=== PATIENT | male | born 1975 | race Two or more races ===

== ENCOUNTER 2025-05-11 10:02 | Inpatient (IN) | payer MEDICAID ==
[~2025-05-11] VITALS: Ht 170.2 cm; Wt 74.4 kg
[2025-05-11] MEDS: IV NS 0.9% 1,000 ML BAG IV ONE (10:40)
[2025-05-11 11:26] LABS: PLATELET COUNT (AUTO) 234 K/uL (150-450); RED BLOOD CELL COUNT(AUTO) 2.90 MIL/uL (4.5-6.0); RED CELL DISTRIBUTION WIDTH 15.1 % (11.5-15.0); WHITE BLOOD COUNT (AUTO) 5.8 K/uL (4.3-11.0)
[2025-05-11 11:29] LABS: CALCIUM, SERUM 8.1 mg/dL (8.5-10.1); CREATININE 0.5 mg/dL (0.6-1.3); SODIUM SERUM 132 mmol/L (136-145); UREA NITROGEN, BLOOD 17 mg/dL (7-18)
[2025-05-11 11:44] LABS: NT-PRO BNP 116 pg/mL (0-125)
[2025-05-11 12:34] LABS: EOSINOPHILS % (MANUAL) 2 % (0-4); LYMPHOCYTES % (MANUAL) 12 % (16-48); MONOCYTES % (MANUAL) 32 % (0-11.0); NEUTROPHILS % (MANUAL) 54 (42-76); PLATELET ESTIMATE ADEQUATE
[2025-05-11] MEDS ORDERED: IV NS 0.9% 250 ML IV ONE (12:46)
[2025-05-11] MEDS ORDERED: IOHEXOL-350 100 ML VIAL IV ONE (12:46)
[2025-05-11] MEDS ORDERED: ENOXAPARIN SODIUM 80 MG/0.8 ML DISP.SYRIN SQ ONE (14:56)
[2025-05-11] MEDS: ENOXAPARIN SODIUM 80 MG/0.8 ML DISP.SYRIN SQ ONE (15:00)
[2025-05-11] MEDS ORDERED: Z GUARD REMEDY 4 OZ OINT TP PRN (15:00)
[2025-05-11] MEDS ORDERED: MAGNESIUM HYDROXIDE 30 ML UDC PO PRN (15:00)
[2025-05-11] MEDS ORDERED: ALLO300T2 GT (15:05)
[2025-05-11] MEDS ORDERED: LACO10SO GT (15:05)
[2025-05-11] MEDS ORDERED: PHEN125O9 GT (15:05)
[2025-05-11] MEDS ORDERED: BUPR1FIL5 SL ×2 (15:05)
[2025-05-11] MEDS ORDERED: ONDA4TAB11 GT (15:05)
[2025-05-11] MEDS ORDERED: LEVE500S9 GT (15:05)
[2025-05-11] MEDS ORDERED: ACET-73 GT (15:05)
[2025-05-11] MEDS ORDERED: SILV50CR32 TP (15:05)
[2025-05-11] MEDS ORDERED: BUPR2TAB3 SL (15:05)
[2025-05-11] MEDS ORDERED: SODI100037 GT (15:05)
[2025-05-11] MEDS ORDERED: BISA10SU11 RC (15:05)
[2025-05-11] MEDS ORDERED: LANS30CA56 GT (15:05)
[2025-05-11] MEDS ORDERED: VALP250S22 GT (15:05)
[2025-05-11] MEDS ORDERED: EPIN0.3A4 IM (15:05)
[2025-05-11] MEDS ORDERED: OLAN5TAB3 GT (15:05)
[2025-05-11] MEDS ORDERED: KETO15CR2 TP (15:05)
[2025-05-11] MEDS ORDERED: CHOL100043 GT (15:05)
[2025-05-11] MEDS ORDERED: TPN/PPN PER PHARMACY IV PRN (19:00)
[2025-05-11 19:09] LABS: PLATELET COUNT (AUTO) 225 K/uL (150-450); RED BLOOD CELL COUNT(AUTO) 3.24 MIL/uL (4.5-6.0); RED CELL DISTRIBUTION WIDTH 15.7 % (11.5-15.0); WHITE BLOOD COUNT (AUTO) 5.8 K/uL (4.3-11.0)
[2025-05-11] MEDS ORDERED: DEXTROSE 50%-WATER 50 ML DISP.SYRIN IV PRN (19:30)
[2025-05-11 19:55] LABS: LYMPHOCYTES % (MANUAL) 13 % (16-48); MONOCYTES % (MANUAL) 23 % (0-11.0)
[2025-05-11 20:00] VITALS: BP 134/80; TEMP 97.9; O2SAT 98
[2025-05-11 20:01] LABS: EOSINOPHILS % (MANUAL) 6 % (0-4); NEUTROPHILS % (MANUAL) 58 (42-76)
[2025-05-11 20:02] LABS: PLATELET ESTIMATE ADEQUATE
[2025-05-11] MEDS: TPN BAG #1 IV SCH (20:16)
[2025-05-11] MEDS: OLANZAPINE 5 MG TABLET GT SCH (21:17)
[2025-05-11] MEDS: BUPRENORPHINE HCL 2 MG TAB.SUBL SL PRN (22:28)
[2025-05-12] MEDS: BLOOD SUGAR DIAGNOSTIC 1 EACH STRIP IN SCH (00:11)
[2025-05-12] MEDS: ENOXAPARIN SODIUM 80 MG/0.8 ML DISP.SYRIN SQ SCH (04:56)
[2025-05-12 05:12] VITALS: BP 140/80; TEMP 98.3; O2SAT 100
[2025-05-12 05:13] VITALS: BP 137/84; TEMP 98.1; O2SAT 99
[2025-05-12 07:40] LABS: CALCIUM, SERUM 8.6 mg/dL (8.5-10.1); CREATININE 0.4 mg/dL (0.6-1.3); SODIUM SERUM 133.0 mmol/L (136-145); UREA NITROGEN, BLOOD 10.0 mg/dL (7-18)
[2025-05-12 07:41] LABS: PHOSPHORUS 3.9 mg/dL (2.5-4.9)
[2025-05-12 08:00] LABS: PLATELET COUNT (AUTO) 262 K/uL (150-450); RED BLOOD CELL COUNT(AUTO) 3.00 MIL/uL (4.5-6.0); RED CELL DISTRIBUTION WIDTH 15.7 % (11.5-15.0); WHITE BLOOD COUNT (AUTO) 5.0 K/uL (4.3-11.0)
[2025-05-12 08:20] LABS: INR 1.13 (0.91-1.10)
[2025-05-12 08:38] LABS: PLATELET COUNT (AUTO) 267 K/uL (150-450); RED BLOOD CELL COUNT(AUTO) 3.11 MIL/uL (4.5-6.0); RED CELL DISTRIBUTION WIDTH 14.8 % (11.5-15.0); WHITE BLOOD COUNT (AUTO) 5.0 K/uL (4.3-11.0)
[2025-05-12] MEDS: PANTOPRAZOLE 40 MG TABLET.DR PO SCH (08:43)
[2025-05-12] MEDS: VALPROIC ACID 250 MG/5 ML UDC GT SCH (08:45)
[2025-05-12] MEDS: LEVETIRACETAM SOL (5 ML) 100 MG/ML UDC GT SCH (08:46)
[2025-05-12] MEDS: LACOSAMIDE ORAL SOLN 50 MG/5 ML UDC GT SCH (08:47)
[2025-05-12] MEDS: PHENYTOIN SUSP UDC 100 MG/4 ML UDC GT SCH (08:48)
[2025-05-12] MEDS: PANTOPRAZOLE 40 MG/PACK PACK GT SCH (08:48)
[2025-05-12] MEDS: SODIUM CHLORIDE 1000 MG TABLET GT SCH (08:49)
[2025-05-12] MEDS: CHOLECALCIFEROL 1,000 UNIT TABLET (VIT D3) GT SCH (08:49)
[2025-05-12] MEDS: ALLOPURINOL 100 MG TABLET GT SCH (08:50)
[2025-05-12] MEDS: SILVER SULFADIAZINE 50 GM JAR TP SCH (09:57)
[2025-05-12] MEDS ORDERED: ANESTHESIA TRAY IN PYXIS 1 EA TRAY MC ONE (12:37)
[2025-05-12] MEDS: Magnesium 1GM/D5W 100ML PREMIX 100 ML IV SCH ×2 (12:42→14:41)
[2025-05-12] MEDS: ACETAMINOPHEN 325 MG TABLET PO PRN (12:43)
[2025-05-12] MEDS: PANTOPRAZOLE 40 MG VIAL IV SCH (12:47)
[2025-05-12 13:53] LABS: EOSINOPHILS % (MANUAL) 2 % (0-4); LYMPHOCYTES % (MANUAL) 7 % (16-48); MONOCYTES % (MANUAL) 50 % (0-11.0); MYELOCYTES % 2 % (0-0); NEUTROPHILS % (MANUAL) 39 (42-76)
[2025-05-12 13:54] LABS: PLATELET ESTIMATE ADEQUATE
[2025-05-12 13:56] LABS: PLATELET ESTIMATE ADEQUATE
[2025-05-12] MEDS: POTASSIUM CL. PREMIX PERIPHER. 50 ML IV SCH (13:58)
[2025-05-12 16:09] LABS: LDL 103.0 mg/dL (0-99)
[2025-05-12] MEDS: FAT EMULSION 20% 500 ML in PREMIX 1 EA IV SCH (17:08)
[2025-05-12 19:11] LABS: PLATELET COUNT (AUTO) 303 K/uL (150-450); RED BLOOD CELL COUNT(AUTO) 3.13 MIL/uL (4.5-6.0); RED CELL DISTRIBUTION WIDTH 15.5 % (11.5-15.0); WHITE BLOOD COUNT (AUTO) 5.0 K/uL (4.3-11.0)
[2025-05-12 20:00] VITALS: BP 129/87; TEMP 97.9; O2SAT 98
[2025-05-12 20:08] LABS: IRON, SERUM 68.0 ug/dl (50-175)
[2025-05-12 20:09] LABS: BAND % (MANUAL) 1 % (0.0-5.0); EOSINOPHILS % (MANUAL) 2 % (0-4); LYMPHOCYTES % (MANUAL) 17 % (16-48); METAMYELOCYTES % 1 % (0-0); MONOCYTES % (MANUAL) 33 % (0-11.0); NEUTROPHILS % (MANUAL) 46 (42-76); PLATELET ESTIMATE ADEQUATE
[2025-05-12] MEDS: HEPARIN SODIUM, PORCINE 5000 UNITS/1 ML VIAL IV ONE (22:50)
[2025-05-12] MEDS: TPN #2 IV SCH (23:03)
[2025-05-13] VITALS (7 sets, daily range): BP systolic 128–150; BP diastolic 86–99; TEMP 97.9–98.6; O2SAT 96–99
[2025-05-13] MEDS ORDERED: HEPARIN INFUSION/D5W 500 ML IV ONE (00:04)
[2025-05-13] MEDS: HEPARIN INFUSION/D5W 500 ML IV PRN (00:08)
[2025-05-13 08:38] LABS: CALCIUM, SERUM 8.8 mg/dL (8.5-10.1); CREATININE 0.4 mg/dL (0.6-1.3); PHOSPHORUS 4.1 mg/dL (2.5-4.9); SODIUM SERUM 135.0 mmol/L (136-145); UREA NITROGEN, BLOOD 8.0 mg/dL (7-18)
[2025-05-13 09:59] LABS: PLATELET COUNT (AUTO) 342 K/uL (150-450); RED BLOOD CELL COUNT(AUTO) 3.17 MIL/uL (4.5-6.0); RED CELL DISTRIBUTION WIDTH 16.2 % (11.5-15.0); WHITE BLOOD COUNT (AUTO) 5.2 K/uL (4.3-11.0)
[2025-05-13] MEDS ORDERED: GADOTERATE MEGLUMINE 10 MMOL/20 ML VIAL IV ONE (11:26)
[2025-05-13 13:05] LABS: EOSINOPHILS % (MANUAL) 3 % (0-4); LYMPHOCYTES % (MANUAL) 6 % (16-48); MONOCYTES % (MANUAL) 22 % (0-11.0); MYELOCYTES % 1 % (0-0); NEUTROPHILS % (MANUAL) 68 (42-76)
[2025-05-13 13:07] LABS: PLATELET ESTIMATE ADEQUATE
[2025-05-13] MEDS ORDERED: PHARMACY TO CHANGE GT/NG MEDS TO PO XX PRN (13:30)
[2025-05-13] MEDS: VALPROIC ACID 250 MG/5 ML UDC PO SCH (17:00)
[2025-05-13] MEDS: LEVETIRACETAM SOL (5 ML) 100 MG/ML UDC PO SCH (17:01)
[2025-05-13] MEDS: PHENYTOIN SUSP UDC 100 MG/4 ML UDC PO SCH (17:01)
[2025-05-13] MEDS: SODIUM CHLORIDE 1000 MG TABLET PO SCH (17:02)
[2025-05-13] MEDS: LACOSAMIDE ORAL SOLN 50 MG/5 ML UDC PO SCH (17:04)
[2025-05-13 17:50] LABS: INR 1.08 (0.91-1.10)
[2025-05-13 19:15] LABS: PLATELET COUNT (AUTO) 336 K/uL (150-450); RED BLOOD CELL COUNT(AUTO) 3.19 MIL/uL (4.5-6.0); RED CELL DISTRIBUTION WIDTH 15.6 % (11.5-15.0); WHITE BLOOD COUNT (AUTO) 5.3 K/uL (4.3-11.0)
[2025-05-13 19:59] LABS: BAND % (MANUAL) 4 % (0.0-5.0); EOSINOPHILS % (MANUAL) 1 % (0-4); LYMPHOCYTES % (MANUAL) 23 % (16-48); METAMYELOCYTES % 1 % (0-0); MONOCYTES % (MANUAL) 31 % (0-11.0); NEUTROPHILS % (MANUAL) 40 (42-76); PLATELET ESTIMATE ADEQUATE
[2025-05-13] MEDS: OLANZAPINE 5 MG TABLET PO SCH (22:15)
[2025-05-14] VITALS (9 sets, daily range): BP systolic 119–149; BP diastolic 65–92; TEMP 97.3–98.2; O2SAT 98–99
[2025-05-14] MEDS: TPN #3 IV SCH (00:15)
[2025-05-14] MEDS: INSULIN REGULAR, HUMAN 100 UNIT/ML 3 ML VIAL SQ PRN (00:35)
[2025-05-14 08:01] LABS: PLATELET COUNT (AUTO) 362 K/uL (150-450); RED BLOOD CELL COUNT(AUTO) 2.92 MIL/uL (4.5-6.0); RED CELL DISTRIBUTION WIDTH 17.1 % (11.5-15.0); WHITE BLOOD COUNT (AUTO) 5.2 K/uL (4.3-11.0)
[2025-05-14 08:02] LABS: CALCIUM, SERUM 8.2 mg/dL (8.5-10.1); CREATININE 0.5 mg/dL (0.6-1.3); PHOSPHORUS 4.1 mg/dL (2.5-4.9); SODIUM SERUM 130.0 mmol/L (136-145); UREA NITROGEN, BLOOD 9.0 mg/dL (7-18)
[2025-05-14] MEDS: ALLOPURINOL 100 MG TABLET PO SCH (09:03)
[2025-05-14] MEDS: CHOLECALCIFEROL 1,000 UNIT TABLET (VIT D3) PO SCH (09:06)
[2025-05-14] MEDS: PANTOPRAZOLE 40 MG TABLET.DR PO SCH (09:06)
[2025-05-14] MEDS: KETOCONAZOLE 2% CREAM 15 GM TUBE TP SCH (09:10)
[2025-05-14] MEDS: HEPARIN SODIUM, PORCINE 5000 UNITS/1 ML VIAL IV ONE ×2 (11:14→23:43)
[2025-05-14 11:34] LABS: EOSINOPHILS % (MANUAL) 2 % (0-4); LYMPHOCYTES % (MANUAL) 15 % (16-48); MONOCYTES % (MANUAL) 34 % (0-11.0); NEUTROPHILS % (MANUAL) 49 (42-76); PLATELET ESTIMATE ADEQUATE
[2025-05-14] MEDS: Magnesium 1GM/D5W 100ML PREMIX 100 ML IV SCH (13:59)
[2025-05-14] MEDS: POTASSIUM CL. PREMIX PERIPHER. 50 ML IV SCH (13:59)
[2025-05-14] MEDS: MAG HYDROX/AL HYDROX/SIMETH 30 ML UDC PO PRN (14:15)
[2025-05-14] MEDS: SOD FERRIC GLUC 125 MG in IV NS 0.9% 100 ML IV SCH (14:42)
[2025-05-14 18:40] LABS: PLATELET COUNT (AUTO) 368 K/uL (150-450); RED BLOOD CELL COUNT(AUTO) 3.06 MIL/uL (4.5-6.0); RED CELL DISTRIBUTION WIDTH 17.3 % (11.5-15.0); WHITE BLOOD COUNT (AUTO) 4.6 K/uL (4.3-11.0)
[2025-05-14 19:24] LABS: EOSINOPHILS % (MANUAL) 1 % (0-4); LYMPHOCYTES % (MANUAL) 25 % (16-48); MONOCYTES % (MANUAL) 30 % (0-11.0); MYELOCYTES % 1 % (0-0); NEUTROPHILS % (MANUAL) 43 (42-76); PLATELET ESTIMATE ADEQUATE
[2025-05-14] MEDS: TPN #4 IV SCH (20:03)
[2025-05-14 20:23] LABS: OCCULT BLOOD STOOL NEGATIVE (NEGATIVE)
[2025-05-15] VITALS: BP 143/68; TEMP 98; O2SAT 99
[2025-05-15 04:00] VITALS: BP 155/88; TEMP 97.8; O2SAT 97
[2025-05-15 07:32] LABS: CALCIUM, SERUM 8.5 mg/dL (8.5-10.1); CREATININE 0.5 mg/dL (0.6-1.3); PHOSPHORUS 3.5 mg/dL (2.5-4.9); SODIUM SERUM 141.0 mmol/L (136-145); UREA NITROGEN, BLOOD 8.0 mg/dL (7-18)
[2025-05-15 07:41] LABS: FIBRINOGEN ACTIVITY 281.0 Mg/dL (213-485); INR 1.11 (0.91-1.10)
[2025-05-15 08:00] VITALS: BP_SYST 133; BP_SYST 135; BP_DIAS 88; TEMP 97.8; O2SAT 97
[2025-05-15] MEDS ORDERED: IV NS 0.9% 250 ML IV ONE (09:29)
[2025-05-15] MEDS ORDERED: IOHEXOL-300 100 ML VIAL IV ONE (09:29)
[2025-05-15 12:00] VITALS: BP_SYST 135; BP_SYST 137; BP_DIAS 88; TEMP 97.8; O2SAT 97
[2025-05-15] MEDS: LACOSAMIDE ORAL SOLN 50 MG/5 ML UDC PO SCH (12:02)
[2025-05-15] MEDS: TPN #5 IV SCH (14:03)
[2025-05-15 15:53] LABS: PLATELET COUNT (AUTO) 369 K/uL (150-450); RED BLOOD CELL COUNT(AUTO) 3.04 MIL/uL (4.5-6.0); RED CELL DISTRIBUTION WIDTH 18.4 % (11.5-15.0); WHITE BLOOD COUNT (AUTO) 4.8 K/uL (4.3-11.0)
[2025-05-15 16:00] VITALS: BP 138/86; TEMP 98.2; O2SAT 97
[2025-05-15 17:13] LABS: LYMPHOCYTES % (MANUAL) 26 % (16-48); MONOCYTES % (MANUAL) 34 % (0-11.0); NEUTROPHILS % (MANUAL) 40 (42-76); PLATELET ESTIMATE ADEQUATE
[2025-05-15 19:42] LABS: PLATELET COUNT (AUTO) 317 K/uL (150-450); RED BLOOD CELL COUNT(AUTO) 2.53 MIL/uL (4.5-6.0); RED CELL DISTRIBUTION WIDTH 18.9 % (11.5-15.0); WHITE BLOOD COUNT (AUTO) 3.6 K/uL (4.3-11.0)
[2025-05-15 20:00] VITALS: BP 134/84; TEMP 98.6; O2SAT 99
[2025-05-15] MEDS: POTASSIUM CL. PREMIX PERIPHER. 50 ML IV SCH (20:37)
[2025-05-15] MEDS: ENOXAPARIN SODIUM 80 MG/0.8 ML DISP.SYRIN SQ SCH (20:39)
[2025-05-16] VITALS: BP 154/93; TEMP 98.1; O2SAT 99
[2025-05-16 04:00] VITALS: BP 152/80; TEMP 98.6; O2SAT 100
[2025-05-16 07:11] LABS: FREE KAPPA LT CHAINS SERUM 17.8 mg/L (3.3-19.4); FREE LAMBDA LT CHAIN SERUM 18.2 mg/L (5.7-26.3); IMMUNOGLOBULIN A, SERUM 79 mg/dL (90-386); IMMUNOGLOBULIN M, SERUM 9 mg/dL (20-172); KAPPA/LAMBDA RATIO SERUM 0.98 (0.26-1.65)
[2025-05-16 08:00] VITALS: BP 164/91; TEMP 98.4; O2SAT 100
[2025-05-16 08:06] LABS: PLATELET COUNT (AUTO) 413 K/uL (150-450); RED BLOOD CELL COUNT(AUTO) 2.99 MIL/uL (4.5-6.0); RED CELL DISTRIBUTION WIDTH 17.8 % (11.5-15.0); WHITE BLOOD COUNT (AUTO) 4.3 K/uL (4.3-11.0)
[2025-05-16] MEDS: PANTOPRAZOLE 40 MG/PACK PACK GT SCH (08:47)
[2025-05-16 10:33] LABS: CALCIUM, SERUM 8.7 mg/dL (8.5-10.1); CREATININE 0.5 mg/dL (0.6-1.3); PHOSPHORUS 3.8 mg/dL (2.5-4.9); SODIUM SERUM 140.0 mmol/L (136-145); UREA NITROGEN, BLOOD 8.0 mg/dL (7-18)
[2025-05-16 11:12] LABS: FOLIC ACID 12.9 ng/mL (>3.0)
[2025-05-16 12:00] VITALS: BP 132/89; TEMP 97.5; O2SAT 99
[2025-05-16] MEDS: POTASSIUM CL. PREMIX PERIPHER. 50 ML IV SCH (12:17)
[2025-05-16] MEDS ORDERED: ENOX40DI SQ (14:19)
[2025-05-16] MEDS ORDERED: [UNRECOGNIZED DRUG - SUPPLY] MC (14:19)
[2025-05-16] MEDS: Magnesium 1GM/D5W 100ML PREMIX 100 ML IV SCH (14:27)
[2025-05-16] MEDS: ONDANSETRON HCL/PF 4 MG/2 ML VIAL IVP PRN (14:28)
[2025-05-16] MEDS: IV NS 0.9% 250 ML IV ONE (14:57)
[2025-05-16 16:00] VITALS: BP 138/86; TEMP 98.1; O2SAT 99
[2025-05-16] MEDS: IV NS 0.9% 500 ML IV ONE (18:00)
[2025-05-16] MEDS: TPN #6 IV SCH (19:48)
[2025-05-16 20:00] VITALS: BP 134/94; TEMP 98.1; O2SAT 99
[2025-05-16] MEDS: METOCLOPRAMIDE HCL 10 MG/10 ML UDC PO SCH (23:59)
[2025-05-17] VITALS: BP 143/90; TEMP 97.1; O2SAT 99
[2025-05-17 02:04] LABS: PLATELET COUNT (AUTO) 428 K/uL (150-450); RED BLOOD CELL COUNT(AUTO) 3.32 MIL/uL (4.5-6.0); RED CELL DISTRIBUTION WIDTH 20.6 % (11.5-15.0); WHITE BLOOD COUNT (AUTO) 6.9 K/uL (4.3-11.0)
[2025-05-17 02:52] LABS: BAND % (MANUAL) 1 % (0.0-5.0); LYMPHOCYTES % (MANUAL) 17 % (16-48); MONOCYTES % (MANUAL) 38 % (0-11.0); NEUTROPHILS % (MANUAL) 44 (42-76); PLATELET ESTIMATE ADEQUATE
[2025-05-17 04:00] VITALS: BP 154/95; TEMP 97.5; O2SAT 98
[2025-05-17 06:56] LABS: INR 1.09 (0.91-1.10)
[2025-05-17 07:01] LABS: CALCIUM, SERUM 8.8 mg/dL (8.5-10.1); CREATININE 0.5 mg/dL (0.6-1.3); PHOSPHORUS 4.1 mg/dL (2.5-4.9); SODIUM SERUM 134.0 mmol/L (136-145); UREA NITROGEN, BLOOD 13.0 mg/dL (7-18)
[2025-05-17 08:00] VITALS: BP 140/81; TEMP 97.9; O2SAT 98
[2025-05-17] MEDS: POTASSIUM CHLORIDE 20 MEQ POWDER PACKET GT ONE ×2 (08:30→09:48)
[2025-05-17] MEDS: Magnesium 1GM/D5W 100ML PREMIX 100 ML IV SCH ×2 (10:00→10:02)
[2025-05-17 10:32] LABS: PLATELET COUNT (AUTO) 433 K/uL (150-450); RED BLOOD CELL COUNT(AUTO) 3.10 MIL/uL (4.5-6.0); RED CELL DISTRIBUTION WIDTH 18.4 % (11.5-15.0); WHITE BLOOD COUNT (AUTO) 7.3 K/uL (4.3-11.0)
[2025-05-17] MEDS: METOCLOPRAMIDE HCL 10 MG/2 ML VIAL IV SCH (10:35)
[2025-05-17 11:31] LABS: BAND % (MANUAL) 3 % (0.0-5.0); BASOPHILS % (MANUAL) 0 % (0.0-2.0); EOSINOPHILS % (MANUAL) 0 % (0-4); LYMPHOCYTES % (MANUAL) 14 % (16-48); MONOCYTES % (MANUAL) 28 % (0-11.0); NEUTROPHILS % (MANUAL) 55 (42-76); PLATELET ESTIMATE ADEQUATE
[2025-05-17 12:00] VITALS: BP 139/85; TEMP 98.3; O2SAT 99
[2025-05-17 12:10] LABS: *SPE A/G RATIO 0.6 (0.7-1.7); *SPE ALBUMIN 2.1 g/dL (2.9-4.4); *SPE ALPHA-1-GLOBULIN 0.5 g/dL (0.0-0.4); *SPE ALPHA-2-GLOBULIN 1.0 g/dL (0.4-1.0); *SPE BETA GLOBULIN 1.0 g/dL (0.7-1.3); *SPE GLOBULIN, TOTAL 3.3 g/dL (2.2-3.9); *SPE M-SPIKE Not Observed g/dL (Not Observed); *SPE PROTEIN TOTAL 5.4 g/dL (6.0-8.5); *SPEGAMMA GLOBULIN 0.8 g/dL (0.4-1.8)
[2025-05-17] MEDS: IV LR 1000 ML 1,000 ML BAG IV ONE (12:22)
[2025-05-17] MEDS: VALPROATE 500 MG in IV D5W 100 ML IV SCH (15:11)
[2025-05-17 16:00] VITALS: BP 133/82; TEMP 98.5; O2SAT 98
[2025-05-17 16:48] LABS: CALCIUM, SERUM 8.5 mg/dL (8.5-10.1); CREATININE 0.5 mg/dL (0.6-1.3); PHOSPHORUS 3.9 mg/dL (2.5-4.9); SODIUM SERUM 135.0 mmol/L (136-145); UREA NITROGEN, BLOOD 13.0 mg/dL (7-18)
[2025-05-17] MEDS: POTASSIUM CL. PREMIX PERIPHER. 50 ML IV SCH (17:57)
[2025-05-17 20:00] VITALS: BP 149/95; TEMP 98.4; O2SAT 97
[2025-05-17] MEDS: SCOPOLAMINE PATCH 1 MG/72HR TD STA (20:03)
[2025-05-17] MEDS: TPN #7 IV SCH (20:23)
[2025-05-17] MEDS: LACOSAMIDE 100 MG in IV NS 0.9% 50 ML IV SCH (21:00)
[2025-05-17] MEDS: LEVETIRACETAM (500MG) 1,000 MG in IV NS 0.9% 90 ML IV SCH (21:05)
[2025-05-17] MEDS ORDERED: PIPERACILLIN /TAZOBACTAM 4.5 G in IV NS 0.9% 100 ML IV ONE (22:00)
[2025-05-17] MEDS ORDERED: PIPERACI/TAZO 3.375GM/D5W 50ML PB IV ONE (22:06)
[2025-05-17] MEDS: PIPERACILLIN /TAZOBACTAM 3.375 G in IV NS 0.9% 100 ML IV ONE (22:07)
[2025-05-17] MEDS ORDERED: DIATR MEGLU/DIATRIZOATE SODIUM 30 ML BOTTLE (GASTROGRAPHIN) ONE (22:44)
[2025-05-18] VITALS: BP 131/48; TEMP 98.4; O2SAT 97
[2025-05-18] MEDS ORDERED: IOHEXOL-300 100 ML VIAL IV ONE (01:37)
[2025-05-18 04:00] VITALS: BP 146/92; TEMP 97.7; O2SAT 97
[2025-05-18] MEDS: PIPERACILLIN /TAZOBACTAM 3.375 G in IV D5W 50 ML IV SCH (06:16)
[2025-05-18 07:54] LABS: PLATELET COUNT (AUTO) 401 K/uL (150-450); RED BLOOD CELL COUNT(AUTO) 3.09 MIL/uL (4.5-6.0); RED CELL DISTRIBUTION WIDTH 19.8 % (11.5-15.0); WHITE BLOOD COUNT (AUTO) 5.0 K/uL (4.3-11.0)
[2025-05-18 07:55] LABS: FIBRINOGEN ACTIVITY 266.0 Mg/dL (213-485); INR 1.09 (0.91-1.10)
[2025-05-18 08:00] VITALS: BP 138/85; TEMP 97.6; O2SAT 99
[2025-05-18 08:07] LABS: CALCIUM, SERUM 8.7 mg/dL (8.5-10.1); CREATININE 0.5 mg/dL (0.6-1.3); PHOSPHORUS 3.6 mg/dL (2.5-4.9); SODIUM SERUM 135.0 mmol/L (136-145); UREA NITROGEN, BLOOD 13.0 mg/dL (7-18)
[2025-05-18] MEDS: phenytoin SODIUM IV 300 MG in IV NS 0.9% 50 ML IV SCH (08:52)
[2025-05-18] MEDS: POTASSIUM CL. PREMIX PERIPHER. 50 ML IV SCH (09:13)
[2025-05-18 09:18] LABS: EOSINOPHILS % (MANUAL) 1 % (0-4); LYMPHOCYTES % (MANUAL) 20 % (16-48); MONOCYTES % (MANUAL) 17 % (0-11.0); MYELOCYTES % 1 % (0-0); NEUTROPHILS % (MANUAL) 61 (42-76)
[2025-05-18 09:32] LABS: PLATELET ESTIMATE ADEQUATE
[2025-05-18 10:11] LABS: *CARD ANTI-CARDIOLIPIN AB IgG <9 GPL U/mL (0-14); *CARD ANTI-CARDIOLIPIN AB IgM <9 MPL U/mL (0-12)
[2025-05-18] MEDS: ONDANSETRON HCL/PF 4 MG/2 ML VIAL IV STA (10:50)
[2025-05-18] MEDS: Magnesium 1GM/D5W 100ML PREMIX 100 ML IV SCH (10:51)
[2025-05-18] MEDS ORDERED: ONDANSETRON HCL/PF 4 MG/2 ML VIAL IVP PRN (11:00)
[2025-05-18 12:00] VITALS: BP 131/87; TEMP 97.9; O2SAT 99
[2025-05-18 13:07] LABS: Beta-2 Glycoprotein I Ab, IgG < 9 (0-20); Beta-2 Glycoprotein I Ab, IgM < 9 (0-32)
[2025-05-18 15:11] LABS: *ANTITHROMBIN III AG 90 % (72-124); *THROMBIN TIME 17.0 sec (0.0-23.0); *dRVVT 31.9 sec (0.0-47.0); ANTITHROMBIN III ACTIVITY 105 % (75-135); PROTEIN C ACTIVITY 66 % (73-180)
[2025-05-18] MEDS: ONDANSETRON HCL/PF 4 MG/2 ML VIAL IV PRN (15:36)
[2025-05-18 16:00] VITALS: BP 128/77; TEMP 97.8; O2SAT 98
[2025-05-18] MEDS ORDERED: KEY,NONCONTROL,TO KEEP IN PYXI 1 EA MC ONE ×2 (18:46→21:50)
[2025-05-18] MEDS: TPN #8 IV SCH (18:47)
[2025-05-18 20:00] VITALS: BP 127/84; TEMP 97.7; O2SAT 98
[2025-05-19] VITALS: BP 134/83; TEMP 97.7; O2SAT 98
[2025-05-19 04:00] VITALS: BP 128/70; TEMP 97.5; O2SAT 99
[2025-05-19 09:00] VITALS: BP 141/84; TEMP 98.9; O2SAT 98
[2025-05-19] MEDS: PANTOPRAZOLE 40 MG VIAL IV SCH (09:12)
[2025-05-19 11:01] LABS: PLATELET COUNT (AUTO) 359 K/uL (150-450); RED BLOOD CELL COUNT(AUTO) 2.99 MIL/uL (4.5-6.0); RED CELL DISTRIBUTION WIDTH 19.4 % (11.5-15.0); WHITE BLOOD COUNT (AUTO) 4.7 K/uL (4.3-11.0)
[2025-05-19 11:19] LABS: CALCIUM, SERUM 8.5 mg/dL (8.5-10.1); CREATININE 0.5 mg/dL (0.6-1.3); PHOSPHORUS 3.5 mg/dL (2.5-4.9); SODIUM SERUM 133.0 mmol/L (136-145); UREA NITROGEN, BLOOD 14.0 mg/dL (7-18)
[2025-05-19 12:00] VITALS: BP 127/79; TEMP 97.3; O2SAT 98
[2025-05-19] MEDS: Magnesium 1GM/D5W 100ML PREMIX 100 ML IV SCH (12:17)
[2025-05-19] MEDS: POTASSIUM CL. PREMIX PERIPHER. 50 ML IV SCH (12:17)
[2025-05-19 12:33] LABS: BASOPHILS % (MANUAL) 0 % (0.0-2.0); EOSINOPHILS % (MANUAL) 0 % (0-4); LYMPHOCYTES % (MANUAL) 18 % (16-48); MONOCYTES % (MANUAL) 33 % (0-11.0); NEUTROPHILS % (MANUAL) 49 (42-76); PLATELET ESTIMATE ADEQUATE
[2025-05-19 15:33] LABS: HIV-1/2 ANTIBODY NON REACTIVE (NONREACTIVE)
[2025-05-19 16:06] VITALS: BP 127/79; TEMP 97.3; O2SAT 98
[2025-05-19] MEDS: TPN #9 IV SCH (18:11)
[2025-05-19 20:00] VITALS: BP 134/79; TEMP 98.2; O2SAT 99
[2025-05-19] MEDS: LACOSAMIDE ORAL SOLN 50 MG/5 ML UDC GT SCH (21:27)
[2025-05-19] MEDS: CEFTRIAXONE 1GM BAG (ER ONLY) 1 GM/50 ML PIGGYBACK IV ONE (23:10)
[2025-05-20] VITALS: BP 146/88; TEMP 97.9; O2SAT 97
[2025-05-20 04:00] VITALS: BP 122/80; TEMP 98.1; O2SAT 98
[2025-05-20] MEDS ORDERED: METRONIDAZOLE 250 MG TABLET ONE (05:35)
[2025-05-20] MEDS: METRONIDAZOLE 250 MG TABLET PO SCH (05:35)
[2025-05-20 07:40] LABS: PLATELET COUNT (AUTO) 340 K/uL (150-450); RED BLOOD CELL COUNT(AUTO) 3.04 MIL/uL (4.5-6.0); RED CELL DISTRIBUTION WIDTH 20.5 % (11.5-15.0); WHITE BLOOD COUNT (AUTO) 4.1 K/uL (4.3-11.0)
[2025-05-20 08:01] LABS: CALCIUM, SERUM 8.3 mg/dL (8.5-10.1); CREATININE 0.5 mg/dL (0.6-1.3); PHOSPHORUS 3.4 mg/dL (2.5-4.9); SODIUM SERUM 139.0 mmol/L (136-145); UREA NITROGEN, BLOOD 14.0 mg/dL (7-18)
[2025-05-20 09:00] VITALS: BP 133/78; TEMP 97.5; O2SAT 97
[2025-05-20 09:49] LABS: LYMPHOCYTES % (MANUAL) 25 % (16-48); MONOCYTES % (MANUAL) 20 % (0-11.0); MYELOCYTES % 2 % (0-0); NEUTROPHILS % (MANUAL) 53 (42-76); PLATELET ESTIMATE ADEQUATE
[2025-05-20] MEDS: LEVETIRACETAM SOL (5 ML) 100 MG/ML UDC GT SCH (10:12)
[2025-05-20] MEDS: VALPROIC ACID 250 MG/5 ML UDC GT SCH (10:19)
[2025-05-20] MEDS: PHENYTOIN SUSP UDC 100 MG/4 ML UDC GT SCH (10:23)
[2025-05-20 12:00] VITALS: BP 136/84; TEMP 98.4; O2SAT 99
[2025-05-20] MEDS: TPN #10 IV SCH (12:40)
[2025-05-20] MEDS: Magnesium 1GM/D5W 100ML PREMIX 100 ML IV SCH (12:41)
[2025-05-20] MEDS: METRONIDAZOLE 500 MG TABLET PO SCH (13:00)
[2025-05-20 16:00] VITALS: BP 121/70; TEMP 98.8
[2025-05-20] MEDS: POTASSIUM CL. PREMIX PERIPHER. 50 ML IV SCH (17:30)
[2025-05-20 20:00] VITALS: BP 126/77; TEMP 98.2
[2025-05-20 22:28] LABS: PHOSPHORUS 2.9 mg/dL (2.5-4.9)
[2025-05-21] VITALS: BP 127/76; TEMP 98.1
[2025-05-21 04:00] VITALS: BP 129/87; TEMP 98.4
[2025-05-21 07:21] LABS: PLATELET COUNT (AUTO) 323 K/uL (150-450); RED BLOOD CELL COUNT(AUTO) 3.02 MIL/uL (4.5-6.0); RED CELL DISTRIBUTION WIDTH 20.6 % (11.5-15.0); WHITE BLOOD COUNT (AUTO) 3.7 K/uL (4.3-11.0)
[2025-05-21 07:47] LABS: CALCIUM, SERUM 8.6 mg/dL (8.5-10.1); CREATININE 0.5 mg/dL (0.6-1.3); PHOSPHORUS 3.0 mg/dL (2.5-4.9); UREA NITROGEN, BLOOD 19.0 mg/dL (7-18)
[2025-05-21 08:54] LABS: SODIUM SERUM 141.0 mmol/L (136-145)
[2025-05-21 09:00] VITALS: BP 135/89; TEMP 97.2; O2SAT 98
[2025-05-21] MEDS: TPN IV SCH (09:49)
[2025-05-21 10:36] LABS: LYMPHOCYTES % (MANUAL) 17 % (16-48); MONOCYTES % (MANUAL) 17 % (0-11.0); MYELOCYTES % 11 % (0-0); NEUTROPHILS % (MANUAL) 55 (42-76); PLATELET ESTIMATE ADEQUATE
[2025-05-21] MEDS: Magnesium 1GM/D5W 100ML PREMIX 100 ML IV SCH (11:24)
[2025-05-21] MEDS: POTASSIUM CL. PREMIX PERIPHER. 50 ML IV SCH (11:24)
[2025-05-21] MEDS: POTASSIUM CHLORIDE 20 MEQ POWDER PACKET GT ONE (11:24)
[2025-05-21] MEDS ORDERED: BISACODYL SUPP (10 MG) 10 MG/SUPP.RECT SUPP.RECT RC PRN (11:30)
[2025-05-21 12:00] VITALS: BP 147/90; TEMP 98.8; O2SAT 98
[2025-05-21] MEDS ORDERED: POTASSIUM CL. PREMIX PERIPHER. 50 ML IV SCH (14:00)
[2025-05-21 15:52] LABS: CALCIUM, SERUM 9.0 mg/dL (8.5-10.1); CREATININE 0.5 mg/dL (0.6-1.3); PHOSPHORUS 2.7 mg/dL (2.5-4.9); SODIUM SERUM 136.0 mmol/L (136-145); UREA NITROGEN, BLOOD 17.0 mg/dL (7-18)
[2025-05-21 16:57] VITALS: BP 152/92; TEMP 98.8; O2SAT 99
[2025-05-21] MEDS: MECLIZINE HCL 25 MG TABLET PO PRN (17:17)
[2025-05-21 20:19] VITALS: BP 146/94; TEMP 99.5; O2SAT 99
[2025-05-22 00:19] VITALS: BP 150/86; TEMP 98.1; O2SAT 99
[2025-05-22 04:13] VITALS: BP 123/88; TEMP 97.9; O2SAT 99
[2025-05-22 07:02] LABS: PLATELET COUNT (AUTO) 299 K/uL (150-450); RED BLOOD CELL COUNT(AUTO) 3.06 MIL/uL (4.5-6.0); RED CELL DISTRIBUTION WIDTH 20.7 % (11.5-15.0); WHITE BLOOD COUNT (AUTO) 3.5 K/uL (4.3-11.0)
[2025-05-22 07:14] LABS: CALCIUM, SERUM 8.7 mg/dL (8.5-10.1); CREATININE 0.5 mg/dL (0.6-1.3); PHOSPHORUS 3.3 mg/dL (2.5-4.9); SODIUM SERUM 138.0 mmol/L (136-145); UREA NITROGEN, BLOOD 21.0 mg/dL (7-18)
[2025-05-22 08:00] VITALS: BP 135/78; TEMP 97.9; O2SAT 99
[2025-05-22] MEDS: POTASSIUM CHLORIDE 20 MEQ POWDER PACKET GT ONE (10:29)
[2025-05-22] MEDS: Magnesium 1GM/D5W 100ML PREMIX 100 ML IV SCH ×2 (10:30→18:25)
[2025-05-22 12:00] VITALS: BP 122/74; TEMP 98.2; O2SAT 98
[2025-05-22 12:00] LABS: BAND % (MANUAL) 1 % (0.0-5.0); LYMPHOCYTES % (MANUAL) 26 % (16-48); MONOCYTES % (MANUAL) 28 % (0-11.0); NEUTROPHILS % (MANUAL) 45 (42-76)
[2025-05-22 12:01] LABS: PLATELET ESTIMATE ADEQUATE
[2025-05-22 16:00] VITALS: BP 136/82; TEMP 97.7; O2SAT 100
[2025-05-22 16:17] LABS: ASPARTATE AMINOTRANSFERASE 37.0 U/L (15-37); CALCIUM, SERUM 8.5 mg/dL (8.5-10.1); CREATININE 0.6 mg/dL (0.6-1.3); PHOSPHORUS 3.1 mg/dL (2.5-4.9); SODIUM SERUM 138.0 mmol/L (136-145); TOTAL PROTEIN, SERUM 6.5 g/dL (6.4-8.2); UREA NITROGEN, BLOOD 19.0 mg/dL (7-18)
[2025-05-22] MEDS: POTASSIUM CL. PREMIX PERIPHER. 50 ML IV SCH (17:08)
[2025-05-22 20:00] VITALS: BP 130/76; TEMP 98.4; O2SAT 99
[2025-05-22] MEDS: TPN #13 IV SCH (20:46)
[2025-05-23] VITALS: BP 106/76; TEMP 98.2; O2SAT 98
[2025-05-23 04:00] VITALS: BP 117/80; TEMP 98.4; O2SAT 98
[2025-05-23 08:00] VITALS: BP 130/87; TEMP 98.5; O2SAT 99
[2025-05-23 11:27] LABS: PLATELET COUNT (AUTO) 319 K/uL (150-450); RED BLOOD CELL COUNT(AUTO) 3.48 MIL/uL (4.5-6.0); RED CELL DISTRIBUTION WIDTH 20.5 % (11.5-15.0); WHITE BLOOD COUNT (AUTO) 5.4 K/uL (4.3-11.0)
[2025-05-23 11:40] LABS: ASPARTATE AMINOTRANSFERASE 30.0 U/L (15-37); CALCIUM, SERUM 9.2 mg/dL (8.5-10.1); CREATININE 0.6 mg/dL (0.6-1.3); SODIUM SERUM 136.0 mmol/L (136-145); TOTAL PROTEIN, SERUM 7.1 g/dL (6.4-8.2); UREA NITROGEN, BLOOD 20.0 mg/dL (7-18)
[2025-05-23 11:47] LABS: PHOSPHORUS 3.8 mg/dL (2.5-4.9)
[2025-05-23 11:58] LABS: BASOPHILS % (MANUAL) 0 % (0.0-2.0); EOSINOPHILS % (MANUAL) 0 % (0-4); LYMPHOCYTES % (MANUAL) 26 % (16-48); MONOCYTES % (MANUAL) 29 % (0-11.0); NEUTROPHILS % (MANUAL) 45 (42-76); PLATELET ESTIMATE ADEQUATE
[2025-05-23 12:00] VITALS: BP 125/77; TEMP 98.1; O2SAT 99
[2025-05-23] MEDS: POTASSIUM CHLORIDE 20 MEQ POWDER PACKET GT SCH (13:27)
[2025-05-23] MEDS: TPN #14 IV SCH (14:21)
[2025-05-23] MEDS ORDERED: POTASSIUM CL. PREMIX PERIPHER. 50 ML IV SCH (20:00)
[2025-05-24] MEDS ORDERED: TPN #15 IV SCH (08:35)
== END 2025-05-23 15:48 | disposition left against medical advice (07) | DRG 134 ==
LOC: ER 10:51 → TELE1 15:46
PROVIDERS: ADMIT Nurse Practitioner Acute Care; ATTEND Nurse Practitioner Acute Care
DX: I26.99 Other pulmonary embolism without acute cor pulmonale (principal); K63.1 Perforation of intestine (nontraumatic); C71.9 Malignant neoplasm of brain, unspecified; E83.51 Hypocalcemia; C83.33 Diffuse large B-cell lymphoma, intra-abdominal lymph nodes; E87.1 Hypo-osmolality and hyponatremia; I82.413 Acute embolism and thrombosis of femoral vein, bilateral; G40.909 Epilepsy, unspecified, not intractable, without status epilepticus; Z95.828 Presence of other vascular implants and grafts; D64.9 Anemia, unspecified; R13.10 Dysphagia, unspecified; D72.821 Monocytosis (symptomatic); E83.42 Hypomagnesemia; E87.6 Hypokalemia; K56.7 Ileus, unspecified; Z93.1 Gastrostomy status; Z92.3 Personal history of irradiation; Z92.21 Personal history of antineoplastic chemotherapy; Z86.718 Personal history of other venous thrombosis and embolism; N28.89 Other specified disorders of kidney and ureter; R47.01 Aphasia
CPT/HCPCS: 36415; 70450-TC; 71045-TC; 74018; 74178; 74183; 80048-TC; 80053-TC; 80061-TC; 81240; 81241; 82040-TC; 82272-TC; 82378; 82607-TC; 82728-TC; 82784; 82962-TC; 83090; 83540-TC; 83605-TC; 83615-TC; 83735-TC; 83880; 84100-TC; 84134-TC; 84155; 84165; 84439-TC; 84443-TC; 84478-TC; 84484-TC; 85025-TC; 85027-TC; 85300; 85301; 85303; 85396; 85610-TC; 85613; 85670; 85705; 85730-TC; 85732; 86147; 86334; 86803; 87040-TC; 87806; 93307-TC; 93970-TC; 97110-TC; 97530-TC; 97535-TC; A4216; A4223; A6253; A9575; G0378; J0696; J1165; J1644; J1650; J1815; J1953; J2405; J2470; J2543; J2765; J2916; J3475; J3480; J3490; J7030; J7040; J7050; J7060; J7120; J8597; Q9963; Q9967